=== PATIENT | male | born 1985 | race Caucasian/White ===

== ENCOUNTER → 2023-06-22 14:56 | Outpatient (CLI) | payer OTHER, SELFPAY ==
[2023-06-24 08:57] LABS: HIV 1 & 2 Ab/Ag 4th Gen Combo NEGATIVE (NEGATIVE); Hep C Virus Ab w/Reflex Quant NEGATIVE s/c (NEGATIVE); Hepatitis B Surface Antigen NEGATIVE s/c (NEGATIVE)
[2023-07-23 13:30] LABS: RPR Screen REACTIVE
[2023-08-06 15:06] LABS: RPR Quant + RPR Abs NON REACTIVE
== END ==
PROVIDERS: Referring Provider Physician Assistant; Visit Provider Physician Assistant
DX: N48.9 Disorder of penis, unspecified (principal); N50.89 Other specified disorders of the male genital organs
CPT/HCPCS: 86592; 86696; 86803; 87070; 87075; 87205; 87340; 87389